=== PATIENT | female | born 1990 | race Two or more races ===

== ENCOUNTER 2019-07-30 10:09 | Emergency (ER) | payer OTHER ==
[~2019-07-30] VITALS: Ht 165.1 cm; Wt 93.0 kg
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
[2019-07-30 10:20] VITALS: BP 136/97
[2019-07-30 11:25] LABS: APPEARANCE,URINE SLIGHTLY CLOUDY; BILIRUBIN, URINE NEGATIVE (NEGATIVE); COLOR,URINE PALE YELLOW; GLUCOSE, URINE (UA) NEGATIVE (NEGATIVE); KETONES,URINE NEGATIVE (NEGATIVE); LEUKOCYTE ESTERASE ,URINE 2+ (NEGATIVE); NITRITE,URINE NEGATIVE (NEGATIVE); PH,URINE 6.5 (4.5-8.0); PROTEIN,URINE NEGATIVE (NEGATIVE); UROBILINOGEN,URINE NORMAL MG/DL (0.0-1.0)
[2019-07-30] MEDS ORDERED: ONDANSETRON ODT4 MG BC (11:48)
[2019-07-30 11:55] VITALS: BP 134/89
== END 2019-07-30 12:00 | disposition home or self-care (01) ==
LOC: EDBD 10:09 → EMR 11:00
DX: Z77.29 Contact with and (suspected) exposure to other hazardous substances (principal); R00.2 Palpitations; R51 Headache; F41.9 Anxiety disorder, unspecified; R11.0 Nausea; R82.81 Pyuria
CPT/HCPCS: 80307; 81003; 81025; 82803; 87086; 93005; 99283